=== PATIENT | female | born 1935 | race Caucasian/White ===

== ENCOUNTER 2020-08-16 11:36 | Emergency (ER) | payer MEDICARE, BC ==
[~2020-08-16] VITALS: Ht 172.7 cm; Wt 79.5 kg
[~2020-08-16 11:36] MED LIST: NO HOME MEDICATIONS
[2020-08-16 11:50] VITALS: TEMP 98.1
[2020-08-16] MEDS ORDERED: CEPHALEXIN500 M1 PO (12:11)
[2020-08-16 12:54] VITALS: BP 149/75; PULSE 58
== END 2020-08-16 12:55 | disposition home or self-care (01) ==
LOC: COL.ER 11:36
DX: I87.2 Venous insufficiency (chronic) (peripheral) (principal); F03.90 Unspecified dementia, unspecified severity, without behavioral disturbance, psychotic disturbance, mood disturbance, and anxiety; Z87.891 Personal history of nicotine dependence
CPT/HCPCS: J0696